=== PATIENT | female | born 1995 | race Caucasian/White ===

== ENCOUNTER 2017-04-27 19:37 | Inpatient (IN) | payer OTHER ==
[~2017-04-27] VITALS: Ht 165.1 cm; Wt 72.1 kg
[2017-04-27 19:39] VITALS: BP 134/84; PULSE 97; RESP 16; TEMP 98.8; O2SAT 97
[2017-04-27] MEDS ORDERED: KETOROLAC TROMETHAMINE 30 MG/ML (IVP) VIAL IV PUSH ONE (22:30)
[2017-04-27] MEDS ORDERED: SODIUM CHLORIDE 0.9% FLUSH 10 ML FLUSH IVF PRN (22:30)
--- NOTE | 2017-04-27 22:47 | RADRPT ---
EXAM DATE/TIME: 04/27/2017 22:37 [facility] COMPARISON: No previous studies available for comparison. INDICATIONS : Left side pain for three days.. Short of break for four weeks. MEDICAL HISTORY : None. SURGICAL HISTORY : None. ENCOUNTER: Initial ACUITY: 3 days PAIN SCORE: 10/10 LOCATION: Left lower quadrant FINDINGS: Left lower lobe airspace consolidation and likely small associated pleural effusion. Cardiomediastina l contours are within normal limits. Bony thorax is intact. CONCLUSION: 1. Left lower lobe airspace consolidation and small associated pleural effusion. Findings are concern ing for pneumonia with reactive effusion in the appropriate clinical setting. Patrice Penn MD on April 27, 2017 at 22:44 Board Certified Radiologist. This report was verified electronically.
[2017-04-27 22:59] LABS: AUTOMATED NEUTROPHIL # 5.6 TH/MM3 (1.8-7.7); BASOPHIL # 0.1 TH/MM3 (0-0.2); BASOPHIL % 0.6 % (0.0-2.0); EOSINOPHIL # 1.3 TH/MM3 (0-0.4); EOSINOPHIL % 11.8 % (0.0-4.0); HEMATOCRIT 39.5 % (35.0-46.0); HEMOGLOBIN 13.3 GM/DL (11.6-15.3); LYMPH % 21.8 % (9.0-44.0); LYMPHOCYTE # 2.5 TH/MM3 (1.0-4.8); MEAN CELL VOLUME 85.5 FL (80.0-100.0); MEAN CORPUSCULAR HEMOGLOBIN 28.9 PG (27.0-34.0); MEAN CORPUSCULAR HGB CONC 33.8 % (32.0-36.0); MEAN PLATELET VOLUME 7.5 FL (7.0-11.0); MONO % 15.8 % (0.0-8.0); MONOCYTE # 1.8 TH/MM3 (0-0.9); PLATELET COUNT 351 TH/MM3 (150-450); RED BLOOD COUNT 4.62 MIL/MM3 (4.00-5.30); RED CELL DISTRIBUTION WIDTH 13.2 % (11.6-17.2); WHITE BLOOD COUNT 11.3 TH/MM3 (4.0-11.0)
--- NOTE | 2017-04-27 23:04 | PD ---
HPI Chief Complaint: Abdominal Pain Time Seen by Provider: 22:07 Travel History International Travel<30 days: No Contact w/Intl Traveler<30days: No Traveled to known affect area: No History of Present Illness HPI 21-year-old female complains of left abdomen pain. There is a pleuritic component. It radiates to the left flank. Pain is severe at times. She reports undergoing evaluation at an outside hospital where imaging revealed an effusion. No fever or cough. No vomiting. After outside hospital evaluation the pain went away however has since returned [facility] Past Medical History Medical other: Yes Reproductive: Yes (ovarian cysts) Immunizations Current: Yes Tetanus Vaccination: Unknown Influenza Vaccination: No ?: Unknown LMP: 03/20/17 Social History Alcohol Use: Yes Tobacco Use: Yes Substance Use: No Allergies-Medications (Allergen,Severity, Reaction): Coded Allergies: No Known Allergies (Unverified , 04/27/17) Review of Systems Except as stated in HPI: all other systems reviewed are Neg Physical Exam Narrative GENERAL: Pleasant 21-year-old female no acute distress Vital Signs Date Time Temp Pulse Resp B/P (MAP) Pulse Ox O2 Delivery O2 Flow Rate FiO2 04/27/17 19:39 98.8 97 16 134/84 (101) 97 SKIN: Warm and dry. HEAD: Atraumatic. Normocephalic. EYES: Pupils equal and round. No scleral icterus. No injection or drainage. ENT: No nasal bleeding or discharge. Mucous membranes pink and moist. NECK: Trachea midline. No JVD. CARDIOVASCULAR: Regular rate and rhythm. RESPIRATORY: No accessory muscle use. Clear to auscultation. Breath sounds equal bilaterally. GASTROINTESTINAL: Minimal tenderness to palpation left abdomen. Soft. MUSCULOSKELETAL: Extremities without clubbing, cyanosis, or edema. No obvious deformities. NEUROLOGICAL: Awake and alert. No obvious cranial nerve deficits. Motor grossly within normal limits. Five out of 5 muscle strength in the arms and legs. Normal speech. PSYCHIATRIC: Appropriate mood and affect; insight and judgment normal. Data Data Last Documented VS Vital Signs Date Time Temp Pulse Resp B/P (MAP) Pulse Ox O2 Delivery O2 Flow Rate FiO2 04/28/17 00:34 89 16 128/67 (87) 97 Room Air 04/27/17 19:39 98.8 Orders Orders Complete Blood Count With Diff (04/27/17 22:25) Comprehensive Metabolic Panel (04/27/17 22:25) D-Dimer (04/27/17 22:25) Magnesium (Mg) (04/27/17 22:25) Ecg Monitoring (04/27/17 22:25) Iv Access Insert/Monitor (04/27/17 22:25) Oximetry (04/27/17 22:25) Oxygen Administration (04/27/17 22:25) Sodium Chloride 0.9% Flush (Ns Flush) (04/27/17 22:30) Chest, Pa & Lat (04/27/17 22:25) Ketorolac Inj (Toradol Inj) (04/27/17 22:30) Ed Urine Pregnancytest Poc (04/27/17 22:25) Acetaminophen (Tylenol) (04/27/17 23:30) Ct Pulmonary Angiogram (04/27/17 23:35) Morphine Inj (Morphine Inj) (04/28/17 00:30) Iohexol 350 Inj (Omnipaque 350 Inj) (04/28/17 01:36) Ceftriaxone Inj (Rocephin Inj) (04/28/17 02:15) Azithromycin Inj (Zithromax Inj) (04/28/17 02:15) Blood Culture (04/28/17 02:11) Admit Order (Ed Use Only) (04/28/17 ) Flower Grower / Telemetry DIGNA.Q8H (04/28/17 02:24) Vital Signs (Adult) Q4H (04/28/17 02:24) Activity Bed Rest (04/28/17 02:24) Labs Laboratory Tests Test 04/27/17 22:37 White Blood Count 11.3 TH/MM3 Red Blood Count 4.62 MIL/MM3 Hemoglobin 13.3 GM/DL Hematocrit 39.5 % Mean Corpuscular Volume 85.5 FL Mean Corpuscular Hemoglobin 28.9 PG Mean Corpuscular Hemoglobin Concent 33.8 % Red Cell Distribution Width 13.2 % Platelet Count 351 TH/MM3 Mean Platelet Volume 7.5 FL Neutrophils (%) (Auto) 50.0 % Lymphocytes (%) (Auto) 21.8 % Monocytes (%) (Auto) 15.8 % Eosinophils (%) (Auto) 11.8 % Basophils (%) (Auto) 0.6 % Neutrophils # (Auto) 5.6 TH/MM3 Lymphocytes # (Auto) 2.5 TH/MM3 Monocytes # (Auto) 1.8 TH/MM3 Eosinophils # (Auto) 1.3 TH/MM3 Basophils # (Auto) 0.1 TH/MM3 CBC Comment DIFF FINAL Differential Comment D-Dimer Quantitative (PE/DVT) 3.28 MG/L FEU Blood Urea Nitrogen 14 MG/DL Creatinine 0.74 MG/DL Random Glucose 78 MG/DL Total Protein 8.2 GM/DL Albumin 3.5 GM/DL Calcium Level 8.9 MG/DL Magnesium Level 2.2 MG/DL Alkaline Phosphatase 71 U/L Aspartate Amino Transf (AST/SGOT) 114 U/L Alanine Aminotransferase (ALT/SGPT) 278 U/L Total Bilirubin 0.4 MG/DL Sodium Level 135 MEQ/L Potassium Level 3.9 MEQ/L Chloride Level 102 MEQ/L Carbon Dioxide Level 26.0 MEQ/L Anion Gap 7 MEQ/L Estimat Glomerular Filtration Rate 101 ML/MIN MDM Medical Decision Making Medical Screen Exam Complete: Yes Emergency Medical Condition: Yes Medical Record Reviewed: Yes (outside recrods reviewed) Differential Diagnosis Gastritis, pancreatitis, appendicitis, acute cholecystitis, ascending cholangitis, AAA, perforated viscous, mesenteric ischemia, hepatitis, cystitis, hydronephrosis/hydroureter/nephroureter calculus, mesenteric adenitis, biliary colic Narrative Course Last Impressions Chest X-Ray 04/27/172224 Signed Impressions: Service Date/Time: April 22:37 - CONCLUSION: 1. Left lower lobe airspace consolidation and small associated pleural effusion. Findings are concerning for pneumonia with reactive effusion in the appropriate clinical setting. Patrice Penn MD CBC & BMP Diagram 04/27/17 22:37 Total Protein 8.2, Albumin 3.5, Calcium Level 8.9, Magnesium Level 2.2, Alkaline Phosphatase 71, Aspartate Amino Transf (AST/SGOT) 114 H, Alanine Aminotransferase (ALT/SGPT) 278 H, Total Bilirubin 0.4 Rocephin/Azithro started Cultures drawn d/w Dr Abebe Diagnosis Primary Impression: Pleural effusion Additional Impression: Lung consolidation Admitting Information Admitting Physician Requests: Admit Maged Arce MD Apr 27, 2017 23:04
[2017-04-27] MEDS ORDERED: ACETAMINOPHEN 325 MG TAB PO ONE (23:30)
[2017-04-27 23:32] LABS: ALT (GPT) 278 U/L (9-42)
[2017-04-27 23:41] LABS: ALBUMIN 3.5 GM/DL (3.4-5.0); AST (GOT) 114 U/L (16-38); BLOOD UREA NITROGEN 14 MG/DL (7-18); CALCIUM 8.9 MG/DL (8.5-10.1); CHLORIDE 102 MEQ/L (98-107); CREATININE 0.74 MG/DL (0.50-1.00); GLOMERULAR FILTRATION RATE 101 ML/MIN (>89); GLUCOSE,RANDOM 78 MG/DL (74-106); SODIUM (NA) 135 MEQ/L (136-145)
[2017-04-27 23:49] LABS: ALKALINE PHOSPHATASE 71 U/L (45-117); MAGNESIUM 2.2 MG/DL (1.5-2.5); TOTAL BILIRUBIN ADULT 0.4 MG/DL (0.2-1.0); TOTAL PROTEIN 8.2 GM/DL (6.4-8.2)
[2017-04-28] VITALS (13 sets, daily range): BP systolic 88–136; BP diastolic 48–81; PULSE 70–90; RESP 12–30; TEMP 97.2–98.9; O2SAT 95–99
[2017-04-28] MEDS ORDERED: MORPHINE SULFATE 4 MG/ML INJ IV PUSH ONE (00:30)
[2017-04-28] MEDS ORDERED: IOHEXOL 350 MG/ML 10 ML VIAL (for RAD DIAG) IVCONTRAST ONE (01:36)
--- NOTE | 2017-04-28 01:45 | RADRPT ---
EXAM DATE/TIME: 04/28/2017 01:32 [facility] COMPARISON: CHEST PA & LAT, April 27, 2017, 22:37. INDICATIONS : Left sided abdominal pain and shortness of breath. IV CONTRAST: 75 cc Omnipaque 350 (iohexol) IV RADIATION DOSE: 15.38 CTDIvol (mGy) MEDICAL HISTORY : Ovarian cysts. SURGICAL HISTORY : None. ENCOUNTER: Initial ACUITY: 1 month PAIN SCALE: 3/10 LOCATION: Bilateral chest TECHNIQUE: Volumetric scanning of the chest was performed using a pulmonary embolism protocol MIP images were re constructed. Using automated exposure control and adjustment of the mA and/or kV according to patien t size, radiation dose was kept as low as reasonably achievable to obtain optimal diagnostic quality images. DICOM format image data is available electronically for review and comparison. Follow-up recommendations for detected pulmonary nodules are based at a minimum on nodule size and pa tient risk factors according to Fleischner Society Guidelines. FINDINGS: PULMONARY ARTERIES: No filling defects are seen in the pulmonary arteries through the segmental level. LUNGS: There is left lower lobe consolidation. Mild, patchy infiltrate also seen in the right middle lobe. PLEURAE: Moderate left pleural effusion. MEDIASTINUM: There is good visualization of the great vessels of the middle mediastinum. No evidence of mediastin al or hilar adenopathy/mass. MUSCULOSKELETAL: Within normal limits for patient age. MISCELLANEOUS: The visualized upper abdominal organs demonstrate no acute abnormality. CONCLUSION: 1. No pulmonary embolus. 2. Moderate left pleural effusion. Dense consolidation left lower lobe. 3. Mild patchy infiltrate right middle lobe. Akbar Rojo MD on April 28, 2017 at 1:42 Board Certified Radiologist. This report was verified electronically.
[2017-04-28] MEDS ORDERED: AZITHROMYCIN INJ 500 MG in SODIUM CHLOR 0.9% 250 ML INJ 250 ML IV ONE (02:15)
[2017-04-28] MEDS ORDERED: cefTRIAXone INJ 1,000 MG in SODIUM CHLORIDE 0.9% INJ 100 ML IV ONE (02:15)
[2017-04-28] MEDS ORDERED: ACETAMINOPHEN 325 MG TAB PO PRN (02:30)
[2017-04-28] MEDS ORDERED: ONDANSETRON HCL 4 MG/2 ML VIAL IVP PRN (02:30)
[2017-04-28] MEDS ORDERED: SODIUM CHLORIDE 0.9% FLUSH 10 ML FLUSH IV FLUSH PRN (02:30)
[2017-04-28] MEDS ORDERED: RESP: ALBUTEROL 2.5 MG/IPRATROPIUM 0.5 MG NEB (PRN) INH (02:45)
[2017-04-28] MEDS ORDERED: guaiFENesin/DEXTROMETHORPHAN 200 MG/20 MG/10 ML CUP PO PRN (02:45)
--- NOTE | 2017-04-28 02:55 | HHI.HP ---
[facility] Admission Diagnosis Pleural Effusion; PNA Diagnoses: Travel History International Travel<30 Days: No Contact w/Intl Traveler <30 Da: No Traveled to Known Affected Are: No History of Present Illness 21-year-old female essentially emergency department for evaluation of left sided pleuritic chest pain. The patient reports that she was last seen in the emergency department in [place] approximately 1 month ago for similar symptoms. She was diagnosed with a small pleural effusion, told that it would resolve on its own and discharged home without any medications. She returns to the emergency department today complaining of pleuritic chest pain that is progressively worsening. She also endorses shortness of breath with exertion. She denies any cough. No recent weight loss. No fever/chills. No nausea/ vomiting/diarrhea. Review of Systems Except as stated in HPI: all other systems reviewed are Neg Past Family Social History Past Medical History None Past Surgical History None Reported Medications None Allergies: Coded Allergies: No Known Allergies (Unverified , 04/27/17) Family History Negative for CAD/DM Social History Smokes approximately one pack of cigarettes per day. Rare alcohol and marijuana. Denies other illicit drugs. Physical Exam Vital Signs Vital Signs Date Time Temp Pulse Resp B/P (MAP) Pulse Ox O2 Delivery O2 Flow Rate FiO2 04/28/17 00:34 89 16 128/67 (87) 97 Room Air 04/27/17 23:32 98 Room Air 04/27/17 19:39 98.8 97 16 134/84 (101) 97 Physical Exam GENERAL: female sitting up in bed SKIN: No rashes, ecchymoses or lesions. Cool and dry. HEAD: Atraumatic. Normocephalic. No temporal or scalp tenderness. EYES: Pupils equal round and reactive. Extraocular motions intact. No scleral icterus. No injection or drainage. ENT: Nose without bleeding, purulent drainage or septal hematoma. Throat without erythema, tonsillar hypertrophy or exudate. Uvula midline. Airway patent. NECK: Trachea midline. No JVD or lymphadenopathy. Supple, nontender, no meningeal signs. CARDIOVASCULAR: Regular rate and rhythm without murmurs, gallops, or rubs. RESPIRATORY: Absent breath sounds left lower lung. No wheezes, rales, or rhonchi. GASTROINTESTINAL: Abdomen soft, non-tender, nondistended. No hepato-splenomegaly , or palpable masses. No guarding. MUSCULOSKELETAL: Extremities without clubbing, cyanosis, or edema. No joint tenderness, effusion, or edema noted. No calf tenderness. NEUROLOGICAL: Awake and alert. Cranial nerves II through XII intact. Motor and sensory grossly within normal limits. Normal speech. Laboratory Laboratory Tests Test 04/27/17 22:37 White Blood Count 11.3 Red Blood Count 4.62 Hemoglobin 13.3 Hematocrit 39.5 Mean Corpuscular Volume 85.5 Mean Corpuscular Hemoglobin 28.9 Mean Corpuscular Hemoglobin Concent 33.8 Red Cell Distribution Width 13.2 Platelet Count 351 Mean Platelet Volume 7.5 Neutrophils (%) (Auto) 50.0 Lymphocytes (%) (Auto) 21.8 Monocytes (%) (Auto) 15.8 Eosinophils (%) (Auto) 11.8 Basophils (%) (Auto) 0.6 Neutrophils # (Auto) 5.6 Lymphocytes # (Auto) 2.5 Monocytes # (Auto) 1.8 Eosinophils # (Auto) 1.3 Basophils # (Auto) 0.1 CBC Comment DIFF FINAL Differential Comment D-Dimer Quantitative (PE/DVT) 3.28 Blood Urea Nitrogen 14 Creatinine 0.74 Random Glucose 78 Total Protein 8.2 Albumin 3.5 Calcium Level 8.9 Magnesium Level 2.2 Alkaline Phosphatase 71 Aspartate Amino Transf (AST/SGOT) 114 Alanine Aminotransferase (ALT/SGPT) 278 Total Bilirubin 0.4 Sodium Level 135 Potassium Level 3.9 Chloride Level 102 Carbon Dioxide Level 26.0 Anion Gap 7 Estimat Glomerular Filtration Rate 101 Result Diagram: 04/27/17223604/27/172236 Caprini VTE Risk Assessment Caprini VTE Risk Assessment: No/Low Risk (score <= 1) Caprini Risk Assessment Model Point Value = 1 Point Value = 2 Point Value = 3 Point Value = 5 Age 41-60 Minor surgery BMI > 25 kg/m2 Swollen legs Varicose veins or History of unexplained or recurrent spontaneous Oral contraceptives or hormone replacement Sepsis (< 1 month) Serious lung disease, including pneumonia (< 1 month) Abnormal pulmonary function Acute myocardial infarction Congestive heart failure (< 1 month) History of inflammatory bowel disease Medical patient at bed rest Age 61-74 Arthroscopic surgery Major open surgery (> 45 min) Laparoscopic surgery (> 45 min) Malignancy Confined to bed (> 72 hours) Immobilizing plaster cast Central venous access Age >= 75 History of VTE Family history of VTE Factor V Leiden Prothrombin [id number] Lupus anticoagulant Anticardiolipin antibodies Elevated serum homocysteine Heparin-induced thrombocytopenia Other congenital or acquired thrombophilia Stroke (< 1 month) Elective arthroplasty Hip, pelvis, or leg fracture Acute spinal cord injury (< 1 month) Prophylaxis Regimen Total Risk Factor Score Risk Level Prophylaxis Regimen 0-1 Low Early ambulation 2 Moderate Order ONE of the following: *Sequential Compression Device (SCD) *Heparin 5000 units SQ BID 3-4 Higher Order ONE of the following medications: *Heparin 5000 units SQ TID *Enoxaparin/Lovenox 40 mg SQ daily (WT < 150 kg, CrCl > 30 mL/min) *Enoxaparin/Lovenox 30 mg SQ daily (WT < 150 kg, CrCl > 10-29 mL/min) *Enoxaparin/Lovenox 30 mg SQ BID (WT < 150 kg, CrCl > 30 mL/min) AND/OR *Sequential Compression Device (SCD) 5 or more Highest Order ONE of the following medications: *Heparin 5000 units SQ TID (Preferred with Epidurals) *Enoxaparin/Lovenox 40 mg SQ daily (WT < 150 kg, CrCl > 30 mL/min) *Enoxaparin/Lovenox 30 mg SQ daily (WT < 150 kg, CrCl > 10-29 mL/min) *Enoxaparin/Lovenox 30 mg SQ BID (WT < 150 kg, CrCl > 30 mL/min) AND *Sequential Compression Device (SCD) Assessment and Plan Assessment and Plan Assessment/plan: 1. Pleural effusion Chest x-ray significant for left lower lobe airspace consolidation with pleural effusion, personally reviewed CTA significant for moderate left pleural effusion with dense consolidation of the left lower lobe and mild patchy infiltrate of the right middle lobe Thoracentesis pending Fluid studies pending 2. Multilobe pneumonia Imaging as above Rocephin/azithromycin 3. Transaminitis Hepatitis profile pending Monitor LFTs FEN NPO Electrolytes: Monitor and replete when necessary Ambulation Physician Certification 2 Midnight Certification Type: Admission for Inpatient Services Order for Inpatient Services The services are ordered in accordance with Medicare regulations or non- Medicare payer requirements, as applicable. In the case of services not specified as inpatient-only, they are appropriately provided as inpatient services in accordance with the 2-midnight benchmark. Estimated LOS (days): 2 2 days is the estimated time the patient will need to remain in the hospital, assuming treatment plan goals are met and no additional complications. Post-Hospital Plan: Not yet determined Nina Abebe MD Apr 28, 2017 02:55
[2017-04-28] MEDS: RESP: ALBUTEROL 2.5 MG/IPRATROPIUM 0.5 MG NEB (SCH) INH ×3 (03:08→21:29)
[2017-04-28 07:04] LABS: AUTOMATED NEUTROPHIL # 3.5 TH/MM3 (1.8-7.7); BASOPHIL % 0.5 % (0.0-2.0); EOSINOPHIL # 1.3 TH/MM3 (0-0.4); EOSINOPHIL % 15.4 % (0.0-4.0); HEMOGLOBIN 12.1 GM/DL (11.6-15.3); LYMPH % 29.6 % (9.0-44.0); LYMPHOCYTE # 2.4 TH/MM3 (1.0-4.8); MEAN CELL VOLUME 85.2 FL (80.0-100.0); MEAN CORPUSCULAR HEMOGLOBIN 29.5 PG (27.0-34.0); MEAN CORPUSCULAR HGB CONC 34.6 % (32.0-36.0); MEAN PLATELET VOLUME 7.5 FL (7.0-11.0); MONO % 11.8 % (0.0-8.0); NEUT % 42.7 % (16.0-70.0); PLATELET COUNT 272 TH/MM3 (150-450); RED BLOOD COUNT 4.11 MIL/MM3 (4.00-5.30); RED CELL DISTRIBUTION WIDTH 13.4 % (11.6-17.2); WHITE BLOOD COUNT 8.2 TH/MM3 (4.0-11.0)
[2017-04-28 07:34] LABS: ALBUMIN 2.9 GM/DL (3.4-5.0); ALKALINE PHOSPHATASE 56 U/L (45-117); ALT (GPT) 240 U/L (9-42); AST (GOT) 108 U/L (16-38); BICARBONATE 26.4 MEQ/L (21.0-32.0); BLOOD UREA NITROGEN 12 MG/DL (7-18); CALCIUM 8.5 MG/DL (8.5-10.1); CHLORIDE 104 MEQ/L (98-107); GLOMERULAR FILTRATION RATE 129 ML/MIN (>89); GLUCOSE,RANDOM 83 MG/DL (74-106); SODIUM (NA) 137 MEQ/L (136-145); TOTAL BILIRUBIN ADULT 0.4 MG/DL (0.2-1.0)
[2017-04-28] MEDS: SODIUM CHLORIDE 0.9% FLUSH 10 ML FLUSH IV FLUSH SCH ×2 (08:26→21:00)
[2017-04-28] MEDS ORDERED: SODIUM CHLOR 0.9% 250 ML INJ 250 ML IV ONE (10:15)
[2017-04-28 11:29] LABS: INTERNATIONAL NORMALIZED RATIO 1.1 RATIO; PROTHROMBIN TIME - PATIENT 10.7 SEC (9.8-11.6)
[2017-04-28] MEDS ORDERED: KETOROLAC TROMETHAMINE 30 MG/ML (IVP) VIAL IV PUSH ONE (12:30)
[2017-04-28] MEDS ORDERED: LIDOCAINE HCL 1% 20 ML VIAL ONE (15:57)
--- NOTE | 2017-04-28 15:58 | RADRPT ---
EXAM DATE/TIME: 04/28/2017 07:55 [facility] COMPARISON: No previous studies available for comparison. INDICATIONS : Left pleural effusion. MEDICAL HISTORY : Ovarian cysts. SURGICAL HISTORY : None. ENCOUNTER: Subsequent ACUITY: 1 day PAIN SCORE: 0/10 LOCATION: Left chest FLUID: Total volume of 600 cc of clear, yellow fluid was removed. Fluid was sent to lab for ordered studies. TECHNIQUE: 1. Ultrasound guidance for thoracentesis. 2. Thoracentesis. The risks, benefits, and alternatives to ultrasound guided thoracentesis were explained to the patien t in lay simple terms, including the risk of bleeding and infection. Written and verbal informed con sent was obtained. Appropriate area for thoracentesis was marked under ultrasound guidance with the patient in the uprig ht position. Overlying skin was prepped and draped in the usual sterile fashion and with local anest hetic, a dermatotomy was made with an 11 blade scalpel. A 6 Spanish thoracentesis catheter was placed in the pleural space and fluid was removed. Catheter was then removed and a sterile dressing applie d. There were no immediate complications. The patient tolerated the procedure well and the left the ultrasound suite in stable condition. Chest radiograph is to be obtained. CONCLUSION: Uncomplicated ultrasound guided thoracentesis. Maged Pickett MD on April 28, 2017 at 15:56 Board Certified Radiologist. This report was verified electronically.
--- NOTE | 2017-04-28 16:19 | RADRPT ---
EXAM DATE/TIME: 04/28/2017 15:47 [facility] COMPARISON: CT PULMONARY ANGIOGRAM, April 28, 2017, 1:32. US GUIDED THORACENTESIS LEFT, April 28, 2017, 7: 55. INDICATIONS : Post left thoracentesis MEDICAL HISTORY : None. SURGICAL HISTORY : None. ENCOUNTER: Initial ACUITY: 1 day PAIN SCORE: 0/10 LOCATION: Left chest FINDINGS: Expiratory view of the chest constraints no evidence of pneumothorax. The consolidation and opacity at the left lower chest with loss of delineation left hemidiaphragm. Right lung is clear. The heart is normal size. CONCLUSION: 1. No evidence of pneumothorax status post left thoracentesis. 2. Consolidation and opacity in the left lower chest factors the combination of pleural effusion and infiltrate. Iker Nolasco MD on April 28, 2017 at 16:16 Board Certified Radiologist. This report was verified electronically.
--- NOTE | 2017-04-28 16:37 | HHI.PR ---
Addendum to Inpatient Note Addendum Reason: Additional Documentation Additional Information Patient complains of left pleuritic chest pain, shortness of breath, denies fevers or chills. Blood pressure noted to be low earlier today. Patient is awake alert oriented 3, tachypneic in mild respiratory distress. S1-S2 are present with regular rate and rhythm, decreased breath sounds and dullness to percussion in left lower hemithorax. There is no wheezing or rhonchi auscultated. Abdomen is soft, nontender nondistended, warm skin. Patient has Commit acquired pneumonia with associated left pleural effusion which is likely parapneumonic. Ultrasound guided centesis ordered and pending. We will Rx 50 mg IV once of IV Toradol. We will place the patient on Percocet and IV Toradol for pain control. Hypotension: Ordered a bolus of 250 mL's of normal saline, BP much improved. Transaminases still elevated but trending down. Continue to monitor LFTs. Hepatitis profile pending. Timothy Guzman MD Apr 28, 2017 16:37
[2017-04-28 16:42] LABS: TOTAL PROTEIN,PLEURAL FLUID 4.5 GM/DL
[2017-04-28 18:15] LABS: PLEURAL FLUID EOS 80 %; PLEURAL FLUID HISTIOCYTES 1 %; PLEURAL FLUID LYMPHS 3 %; PLEURAL FLUID MESOTHELIAL 1 %; PLEURAL FLUID MONOS 6 %; PLEURAL FLUID POLYS (SEGS) 9 %
[2017-04-28 18:16] LABS: PLEURAL FLUID RBC 2366 /MM3 (0-0); PLEURAL FLUID WBC 7933 /MM3 (0-10)
[2017-04-29] VITALS: BP 116/67; PULSE 91; RESP 14; TEMP 99.4; O2SAT 93
[2017-04-29] MEDS ORDERED: AZITHROMYCIN INJ 500 MG in SODIUM CHLOR 0.9% 250 ML INJ 250 ML IV SCH (03:00)
[2017-04-29] MEDS ORDERED: cefTRIAXone INJ 1,000 MG in SODIUM CHLORIDE 0.9% INJ 100 ML IV SCH (03:00)
[2017-04-29] MEDS: RESP: ALBUTEROL 2.5 MG/IPRATROPIUM 0.5 MG NEB (SCH) INH ×3 (03:30→15:23)
[2017-04-29 04:00] VITALS: BP 114/60; PULSE 72; PULSE 97; RESP 14; TEMP 98.7; O2SAT 95
[2017-04-29 08:00] VITALS: BP 102/48; PULSE 74; RESP 20; TEMP 97.7; O2SAT 95
[2017-04-29] MEDS: SODIUM CHLORIDE 0.9% FLUSH 10 ML FLUSH IV FLUSH SCH (09:00)
[2017-04-29 11:29] VITALS: BP 170/85; PULSE 130; RESP 22; O2SAT 97
[2017-04-29 12:00] VITALS: BP 122/69; PULSE 82; RESP 20; TEMP 99; O2SAT 97
[2017-04-29] MEDS ORDERED: AZIT500T2 PO (14:44)
[2017-04-29] MEDS ORDERED: CEFU1TAB20 PO (14:44)
--- NOTE | 2017-04-29 14:48 | HHI.DCPOC ---
Discharge Care Plan Diagnosis: (1) CAP (community acquired pneumonia) (2) Pleural effusion Goals to Promote Your Health * To prevent worsening of your condition and complications * To maintain your health at the optimal level Directions to Meet Your Goals Take your medications as prescribed Follow your dietary instruction Follow activity as directed Keep your appointments as scheduled Take your immunizations and boosters as scheduled If your symptoms worsen call your PCP, if no PCP go to Urgent Care Center or Emergency Room Smoking is Dangerous to Your Health. Avoid second hand smoke Call the 24-hour hour crisis hotline for domestic abuse at Timothy Guzman MD Apr 29, 2017 14:48
--- NOTE | 2017-04-29 15:03 | HHI.DS ---
Discharge Summary Admission Date Apr 28, 2017 at 02:26 Discharge Date: Apr 29, 2017 Admitting Diagnosis Pleural Effusion; PNA (1) Parapneumonic effusion ICD Code: J18.9 - Pneumonia, unspecified organism; J91.8 - Pleural effusion in other conditions classified elsewhere Diagnosis: Principal (2) CAP (community acquired pneumonia) ICD Code: J18.9 - Pneumonia, unspecified organism Diagnosis: Principal (3) Transaminitis ICD Code: R74.0 - Nonspecific elevation of levels of transaminase and lactic acid dehydrogenase [LDH] Diagnosis: Principal Status: Chronic (4) Hepatitis C ICD Code: B19.20 - Unspecified viral hepatitis C without hepatic coma Diagnosis: Principal Status: Chronic Procedures None Brief History - From Admission 21-year-old female essentially emergency department for evaluation of left sided pleuritic chest pain. The patient reports that she was last seen in the emergency department in [place] approximately 1 month ago for similar symptoms. She was diagnosed with a small pleural effusion, told that it would resolve on its own and discharged home without any medications. She returns to the emergency department today complaining of pleuritic chest pain that is progressively worsening. She also endorses shortness of breath with exertion. She denies any cough. No recent weight loss. No fever/chills. No nausea/ vomiting/diarrhea. CBC/BMP: 04/28/17 0620 04/28/17 0620 Significant Findings Laboratory Tests Test 04/27/17 22:37 04/28/17 00:00 04/28/17 06:20 04/28/17 10:55 White Blood Count 11.3 TH/MM3 (4.0-11.0) Monocytes (%) (Auto) 15.8 % (0.0-8.0) 11.8 % (0.0-8.0) Eosinophils (%) (Auto) 11.8 % (0.0-4.0) 15.4 % (0.0-4.0) Monocytes # (Auto) 1.8 TH/MM3 (0-0.9) 1.0 TH/MM3 (0-0.9) Eosinophils # (Auto) 1.3 TH/MM3 (0-0.4) 1.3 TH/MM3 (0-0.4) D-Dimer Quantitative (PE/DVT) 3.28 MG/L FEU (0.00-0.50) Aspartate Amino Transf (AST/SGOT) 114 U/L (16-38) 108 U/L (16-38) Alanine Aminotransferase (ALT/SGPT) 278 U/L (9-42) 240 U/L (9-42) Sodium Level 135 MEQ/L (136-145) Pleural Fluid WBC 7933 /MM3 (0-10) Pleural Fluid RBC 2366 /MM3 (0-0) Albumin 2.9 GM/DL (3.4-5.0) Imaging Last Impressions Thoracentesis Ultrasound 04/28/17 0000 Signed Impressions: Service Date/Time: Friday, April 28, 2017 07:55 - CONCLUSION: Uncomplicated ultrasound guided thoracentesis. Maged Pickett MD Chest X-Ray 04/28/17 0000 Signed Impressions: Service Date/Time: Friday, April 28, 2017 15:47 - CONCLUSION: 1. No evidence of pneumothorax status post left thoracentesis. 2. Consolidation and opacity in the left lower chest factors the combination of pleural effusion and infiltrate. Iker Nolasco MD CT Angiography 04/27/17 2335 Signed Impressions: Service Date/Time: Friday, April 28, 2017 01:32 - CONCLUSION: 1. No pulmonary embolus. 2. Moderate left pleural effusion. Dense consolidation left lower lobe. 3. Mild patchy infiltrate right middle lobe. Akbar Rojo MD PE at Discharge AAox3 Clear lungs BL abdomen soft, nt, nd no edema in extremities Pt update on day of discharge The patient denies chest pain or shortness of breath, the patient states she really wants to be discharged. Hospital Course The patient was admitted to the medical floor, monitor on telemetry. The patient was started on IV Rocephin and IV azithromycin for treatment of community-acquired pneumonia seen on chest x-ray and described above. The patient underwent successful thoracentesis with drainage of 600 cc of clear yellow fluid. Fluid analysis showed a poor white blood cell count of 7933 and a red blood cell count of 2366 consistent with parapneumonic effusion. The patient had an unexpected recovery and was discharged on oral antibiotics -oral azithromycin and cefuroxime. Patient also had an episode of hypotension which was treated with an IV fluid bolus. Hypotension resolved. Patient also noted to have elevated transaminases at with an AST of 114 and an ALT of 278, down trending prior to discharge. The patient states she has a diagnosis of hepatitis C and is following up as an outpatient with her primary care physician. Patient states she is awaiting to be clean from IV drugs for 6 months prior to be able to qualify for treatment. Pt Condition on Discharge: Stable Discharge Disposition: Discharge Home Discharge Time: <= 30 minutes Discharge Instructions DIET: Follow Instructions for: As Tolerated, No Restrictions Activities you can perform: Regular-No Restrictions Activities to Avoid: Strenuous Activity Follow up Referrals: PCP Follow-up - 2 Weeks New Medications: Azithromycin (Azithromycin) 500 Mg Tab 500 MG PO DAILY for Infection, #3 TAB 0 Refills Cefuroxime (Cefuroxime) 500 Mg Tab 500 MG PO BID for Infection, #20 TAB 0 Refills Timothy Guzman MD Apr 29, 2017 15:03
== END 2017-04-29 16:32 | disposition home or self-care (01) | DRG 194 ==
LOC: NEPE 19:37 → NEDA 04-28 02:26 → N07B 04-28 03:57
PROVIDERS: ADMIT Hospitalist; ATTEND Hospitalist
PROC: 0W9B3ZZ Drainage of Left Pleural Cavity, Percutaneous Approach (ICD-10-PCS; principal; 2017-04-28)
DX: J18.9 Pneumonia, unspecified organism (principal); J90 Pleural effusion, not elsewhere classified; I95.9 Hypotension, unspecified; R06.03 Acute respiratory distress; B19.20 Unspecified viral hepatitis C without hepatic coma; F17.210 Nicotine dependence, cigarettes, uncomplicated
CPT/HCPCS: 32555; 71045; 71046; 71275; 80053; 82945; 83735; 84157; 84703; 85025; 85379; 85610; 85730; 87015; 87040; 87070; 87102; 87116; 87186; 87205; 87206; 89051; 94640; 94664; 96374; 96375; C1729; J0456; J0696; J1885; J2270; J7050; Q9967